=== PATIENT | male | born 1990 | race Caucasian/White ===

== ENCOUNTER 2019-05-08 14:56 | Emergency (ER) | payer OTHER ==
[~2019-05-08] VITALS: Ht 182.9 cm; Wt 86.2 kg
[2019-05-08] MEDS ORDERED: NOHOMEMEDICATIONS (15:11)
[2019-05-08 16:26] LABS: CALCIUM 8.6 mg/dL (8.5-10.1); CREATININE 0.8 mg/dL (0.6-1.3)
[2019-05-08 16:30] LABS: ALBUMIN 3.6 g/dL (3.4-5.0); TOTAL BILIRUBIN 0.5 mg/dL (<0.1-1.0)
[2019-05-08 16:35] LABS: ABSOLUTE BASOPHILS 0.1 thou/uL (0.0-0.2); ABSOLUTE EOSINOPHILS 0.1 thou/uL (0.0-0.7); ABSOLUTE LYMPHOCYTES 2.4 thou/uL (0.8-5.3); ABSOLUTE MONOCYTES 0.9 thou/uL (0.0-1.2); ABSOLUTE NEUTROPHILS 3.7 thou/uL (1.6-8.1); BASOPHILS 1.1 %; HEMATOCRIT 30.7 % (42.0-52.0); HEMOGLOBIN 8.9 gm/dL (14.0-18.0); LYMPHOCYTES 33.4 %; MCV 58.9 fL (80.0-100.0); MONOCYTES 12.4 %; NUCLEATED RBCS 0 /100WBC; PLATELET COUNT* 257 thou/uL (150-400); POLYS 51.1 %; RBC 5.22 mil/uL (4.50-6.00); RDW-CV 21.4 % (10.5-14.5); WBC 7.1 thou/uL (4.0-11.0)
[2019-05-08 17:09] LABS: ANISOCYTOSIS 2+; HYPOCHROMASIA 3+; OVALOCYTES 1+
[2019-05-08 17:11] LABS: MICROCYTES 3+; PLATELET ESTIMATE ADEQUATE
[2019-05-08 17:13] LABS: POIKILOCYTOSIS 1+
[2019-05-08] MEDS ORDERED: CLEOCIN HCL150 MG PO (17:21)
[2019-05-08 17:32] VITALS: BP 117/58
== END 2019-05-08 17:32 | disposition home or self-care (01) ==
LOC: M.ERS 14:56
PROVIDERS: Physician Assistant
DX: K11.20 Sialoadenitis, unspecified (principal); L03.221 Cellulitis of neck; H92.02 Otalgia, left ear; Z98.84 Bariatric surgery status

== ENCOUNTER 2020-01-08 19:25 | Emergency (ER) | payer OTHER ==
[~2020-01-08] VITALS: Ht 180.3 cm; Wt 94.3 kg
[~2020-01-08 19:25] MED LIST: CLEOCIN HCL150 MG PO; NOHOMEMEDICATIONS
[2020-01-08 19:58] LABS: INFLUENZA A ANTIGEN Negative (Negative); INFLUENZA B ANTIGEN Negative (Negative)
[2020-01-08] MEDS ORDERED: AMOXICILLIN 50500 MG PO (20:20)
[2020-01-08 20:39] VITALS: BP 119/68
== END 2020-01-08 20:42 | disposition home or self-care (01) ==
LOC: M.ERS 19:25
PROVIDERS: Nurse Practitioner Family
DX: H66.91 Otitis media, unspecified, right ear (principal); R59.1 Generalized enlarged lymph nodes

== ENCOUNTER 2020-04-19 00:28 | Emergency (ER) | payer OTHER ==
[~2020-04-19] VITALS: Ht 177.8 cm; Wt 99.8 kg
[~2020-04-19 00:28] MED LIST changes: +AMOXICILLIN 50500 MG PO
[2020-04-19 00:34] VITALS: BP 121/61
[2020-04-19] MEDS ORDERED: IBUPROFEN 800800 MG PO (00:41)
[2020-04-19] MEDS ORDERED: ACETAMINOPHEN-1 EAC2 PO (00:41)
[2020-04-19] MEDS ORDERED: PENICILLIN V P500 MG PO (00:41)
== END 2020-04-19 00:47 | disposition home or self-care (01) ==
LOC: M.ERS 00:28
DX: S02.5XXA Fracture of tooth (traumatic), initial encounter for closed fracture (principal); K04.7 Periapical abscess without sinus; X58.XXXA Exposure to other specified factors, initial encounter; Y93.89 Activity, other specified; Y92.89 Other specified places as the place of occurrence of the external cause; Y99.8 Other external cause status